=== PATIENT | male | born 1970 | race Caucasian/White ===

== ENCOUNTER 2022-02-17 03:42 | Inpatient (IN) | payer SELFPAY ==
[~2022-02-17] VITALS: Ht 175.3 cm; Wt 63.5 kg
[2022-02-17] MEDS ORDERED: ACETAMINOPHEN 325 MG TAB PO STA (04:13)
[2022-02-17 04:14] LABS: BASOPHILS % 0.2 % (0.0-1.0); EOSINOPHILS # (AUTO) 0.1 (0.0-0.4); EOSINOPHILS % 0.7 % (0.0-6.0); HEMATOCRIT 50.6 % (38.2-49.6); HEMOGLOBIN 16.9 g/dL (14.0-18.0); LYMPHOCYTES # (AUTO) 1.7 (1.0-3.2); LYMPHOCYTES % 18.2 % (18.0-39.1); MEAN CORPUSCULAR HEMOGLOBIN 32.4 pg (28-32); MEAN CORPUSCULAR HGB CONC 33.4 g/dL (31-35); MEAN CORPUSCULAR VOLUME 97.1 fL (81-99); MONOCYTES # (AUTO) 0.6 (0.2-0.8); MONOCYTES % 6.6 % (4.4-11.3); NEUTROPHILS # (AUTO) 6.8 (2.1-6.9); NEUTROPHILS % 73.9 % (38.7-80.0); PLATELET COUNT 378 x10e3/uL (140-360); RED BLOOD COUNT 5.21 x10e6/uL (4.3-5.7); RED CELL DISTRIBUTION WIDTH 11.9 % (11.7-14.4)
[2022-02-17 04:23] LABS: CLARITY,URINE CLEAR (CLEAR); COLOR,URINE YELLOW (YELLOW); KETONES,URINE NEGATIVE (NEGATIVE); LEUKOCYTE ESTERASE ,URINE NEGATIVE (NEGATIVE); NITRITE,URINE NEGATIVE (NEGATIVE); PROTEIN,URINE DIPSTICK NEGATIVE (NEGATIVE)
[2022-02-17 04:24] LABS: AMPHETAMINES SCREEN,URINE NEGATIVE (NEGATIVE); BENZODIAZEPINES SCREEN,URINE NEGATIVE (NEGATIVE); PHENCYCLIDINE SCREEN,URINE NEGATIVE (NEGATIVE); URINE UROBILINOGEN 0.2 mg/dL (0.2 - 1)
[2022-02-17 04:30] LABS: CREATINE KINASE 62 IU/L (30-200)
[2022-02-17] MEDS ORDERED: ACETAMINOPHEN 325 MG TAB ONE (04:30)
[2022-02-17 04:32] LABS: BACTERIA,URINE MODERATE /HPF; EPITHELIAL CELLS,URINE FEW /LPF; MUCUS,URINE MANY (RARE); RBC,URINE 0-5 /HPF (0-5); WBC,URINE (MAN) 0-5 /HPF (0-5)
[2022-02-17] MEDS ORDERED: ONDANSETRON HCL INJ 2MG/ML 2ML 2 MG/ML VIAL IV STA (04:51)
[2022-02-17 04:52] LABS: ALBUMIN/GLOBULIN RATIO 1.4 (0.8-2.0); ANION GAP 16.7 mmol/L (8-16); CALCIUM 8.8 mg/dL (8.4-10.2); CREATININE, SERUM 0.78 mg/dL (0.72-1.25); POTASSIUM 3.7 mmol/L (3.5-5.1)
[2022-02-17] MEDS ORDERED: SODIUM CHLORIDE 0.9% 1000ML 1,000 ML IV SCH (05:00)
[2022-02-17] MEDS ORDERED: ONDANSETRON HCL INJ 2MG/ML 2ML 2 MG/ML VIAL ONE (05:05)
[2022-02-17] MEDS ORDERED: IOPAMIDOL 370 MG/ML 100 ML INFUS..BTL INJ ONE (05:18)
[2022-02-17] MEDS: Morphine 4mg INJECTION 4 MG/ML INJ IV PRN ×2 (05:30→12:00)
[2022-02-17] MEDS ORDERED: DIPHENHYDRAMINE HCL INJ 50 MG/ML VIAL ONE (07:19)
[2022-02-17] MEDS ORDERED: HYDROMORPHONE 1MG/1ML INJ IV ONE (07:45)
[2022-02-17] MEDS ORDERED: MULTIVITAMINS- 12 INJECTION 10 ML, FOLIC ACID MDV 1 MG, THIAMINE HCL INJ 100 MG in SODI... IV SCH (08:00)
[2022-02-17 08:55] VITALS: BP 150/85
[2022-02-17] MEDS ORDERED: LACTATED RINGER'S 1,000 ML ONE (09:28)
[2022-02-17] MEDS ORDERED: OMEPRAZOLE40 MG PO (09:33)
[2022-02-17] MEDS ORDERED: IBUPROFEN200 MG PO (09:33)
[2022-02-17] MEDS: ONDANSETRON HCL INJ 2MG/ML 2ML 2 MG/ML VIAL IV PRN ×3 (11:59→22:57)
[2022-02-17 12:01] VITALS: BP 165/94
[2022-02-17] MEDS ORDERED: HYDROMORPHONE 1MG/1ML INJ IV PRN (13:00)
[2022-02-17] MEDS: MULTIVITAMINS- 12 INJECTION 10 ML, FOLIC ACID MDV 1 MG, THIAMINE HCL INJ 100 MG in SODI... IV SCH (16:17)
[2022-02-17 16:49] VITALS: BP 159/98
[2022-02-17] MEDS ORDERED: LACTATED RINGER'S 1,000 ML INJ SCH (17:00)
[2022-02-17 17:01] VITALS: BP 159/98
[2022-02-17 17:04] VITALS: BP 159/98
[2022-02-17] MEDS ORDERED: BENADRYL25 M1 PO (18:36)
[2022-02-17 20:00] VITALS: BP 152/92
[2022-02-17] MEDS ORDERED: DIPHENHYDRAMINE HCL 25 MG CAP PO PRN (20:15)
[2022-02-17] MEDS: HYDROMORPHONE 1MG/1ML INJ IV PRN (22:56)
[2022-02-17] MEDS: DIPHENHYDRAMINE HCL INJ 50 MG/ML VIAL IV PRN (22:58)
[2022-02-18] VITALS (9 sets, daily range): BP systolic 130–151; BP diastolic 72–90
[2022-02-18] MEDS ORDERED: LACTATED RINGER'S 1,000 ML INJ SCH (01:00)
[2022-02-18] MEDS: ONDANSETRON HCL INJ 2MG/ML 2ML 2 MG/ML VIAL IV PRN (03:07)
[2022-02-18] MEDS: LACTATED RINGER'S 1,000 ML INJ SCH ×3 (04:25→15:30)
[2022-02-18] MEDS: HYDROMORPHONE 1MG/1ML INJ IV PRN ×4 (04:26→22:13)
[2022-02-18 05:01] LABS: BASOPHILS # (AUTO) 0.1 (0.0-0.1); BASOPHILS % 0.3 % (0.0-1.0); EOSINOPHILS % 0.1 % (0.0-6.0); HEMATOCRIT 43.8 % (38.2-49.6); HEMOGLOBIN 15.1 g/dL (14.0-18.0); LYMPHOCYTES # (AUTO) 0.8 (1.0-3.2); MEAN CORPUSCULAR HEMOGLOBIN 32.1 pg (28-32); MEAN CORPUSCULAR HGB CONC 34.5 g/dL (31-35); MEAN CORPUSCULAR VOLUME 93.2 fL (81-99); MONOCYTES # (AUTO) 1.5 (0.2-0.8); MONOCYTES % 7.8 % (4.4-11.3); NEUTROPHILS # (AUTO) 17.1 (2.1-6.9); NEUTROPHILS % 87.1 % (38.7-80.0); PLATELET COUNT 335 x10e3/uL (140-360); RED CELL DISTRIBUTION WIDTH 12.2 % (11.7-14.4)
[2022-02-18 05:41] LABS: ALBUMIN 3.3 g/dL (3.5-5.0); ALBUMIN/GLOBULIN RATIO 1.3 (0.8-2.0); ANION GAP 11.9 mmol/L (8-16); CALCIUM 8.4 mg/dL (8.4-10.2); CREATININE, SERUM 0.78 mg/dL (0.72-1.25); POTASSIUM 3.9 mmol/L (3.5-5.1)
[2022-02-18 05:57] LABS: MAGNESIUM 1.5 MG/DL (1.3-2.1); PHOSPHORUS 1.5 MG/DL (2.3-4.7)
[2022-02-18] MEDS ORDERED: ACETAMINOPHEN 325 MG TAB PO PRN (10:15)
[2022-02-18] MEDS ORDERED: HYDRALAZINE HCL 20 MG/ML VIAL IV PRN (10:15)
[2022-02-18] MEDS ORDERED: POLYETHYLENE GLYCOL 3350 17 GM PACK PO PRN (10:15)
[2022-02-18] MEDS ORDERED: CHLORDIAZEPOXIDE HCL 25 MG CAP PO PRN (10:15)
[2022-02-18] MEDS ORDERED: LORAZEPAM INJ 2 MG/ML VIAL IV PRN (10:15)
[2022-02-18] MEDS ORDERED: MAGNESIUM SULF 1GRAM/DEXTROSE 100 ML IV ONE (10:45)
[2022-02-18] MEDS ORDERED: POTASSIUM PHOSPHATE 15 MM in SODIUM CHLORIDE 0.9% 250ML 250 ML IV ONE (11:30)
[2022-02-18] MEDS ORDERED: MAGNESIUM SULFATE 2GM/50ML 50 ML IV ONE (11:45)
[2022-02-18] MEDS ORDERED: DOCUSATE SODIUM 100 MG CAP PO SCH (17:00)
[2022-02-18] MEDS: FAMOTIDINE 20 MG/2 ML VIAL IV SCH (18:35)
[2022-02-18] MEDS: MULTIVITAMINS- 12 INJECTION 10 ML, FOLIC ACID MDV 1 MG, THIAMINE HCL INJ 100 MG in SODI... IV SCH (20:57)
[2022-02-19] MEDS: DIPHENHYDRAMINE HCL INJ 50 MG/ML VIAL IV PRN ×2 (00:23→05:57)
[2022-02-19 04:00] VITALS: BP 132/77
[2022-02-19] MEDS: HYDROMORPHONE 1MG/1ML INJ IV PRN ×2 (04:21→10:17)
[2022-02-19 04:44] LABS: CLARITY,URINE SL CLOUDY (CLEAR); COLOR,URINE YELLOW (YELLOW); KETONES,URINE NEGATIVE (NEGATIVE); LEUKOCYTE ESTERASE ,URINE TRACE (NEGATIVE); NITRITE,URINE NEGATIVE (NEGATIVE); PROTEIN,URINE DIPSTICK TRACE (NEGATIVE); URINE UROBILINOGEN 1 mg/dL (0.2 - 1)
[2022-02-19 04:52] LABS: BACTERIA,URINE MANY /HPF; EPITHELIAL CELLS,URINE MANY /LPF; RENAL EPITHELIAL CELLS,URINE FEW; TRANSITIONAL EPI CELLS,URINE FEW
[2022-02-19 05:42] LABS: BASOPHILS % 0.2 % (0.0-1.0); EOSINOPHILS # (AUTO) 0.1 (0.0-0.4); EOSINOPHILS % 0.5 % (0.0-6.0); HEMATOCRIT 42.7 % (38.2-49.6); HEMOGLOBIN 14.1 g/dL (14.0-18.0); LYMPHOCYTES # (AUTO) 0.8 (1.0-3.2); LYMPHOCYTES % 4.8 % (18.0-39.1); MEAN CORPUSCULAR HEMOGLOBIN 32.3 pg (28-32); MEAN CORPUSCULAR VOLUME 97.9 fL (81-99); MONOCYTES # (AUTO) 1.3 (0.2-0.8); MONOCYTES % 7.8 % (4.4-11.3); NEUTROPHILS # (AUTO) 14.7 (2.1-6.9); NEUTROPHILS % 86.3 % (38.7-80.0); PLATELET COUNT 337 x10e3/uL (140-360); RED BLOOD COUNT 4.36 x10e6/uL (4.3-5.7); RED CELL DISTRIBUTION WIDTH 12.1 % (11.7-14.4)
[2022-02-19 05:59] LABS: ALBUMIN/GLOBULIN RATIO 1.2 (0.8-2.0); CALCIUM 8.2 mg/dL (8.4-10.2); CHOL/HDL RATIO 3.1 (3.9-4.7); CREATININE, SERUM 0.7 mg/dL (0.72-1.25)
[2022-02-19 06:20] LABS: THYROID STIMULATING HORMONE 1.599 uIU/mL (0.350-4.940)
[2022-02-19] MEDS: LACTATED RINGER'S 1,000 ML INJ SCH ×2 (07:22→07:23)
[2022-02-19 08:04] VITALS: BP 148/85
[2022-02-19 08:19] VITALS: BP 148/85
[2022-02-19] MEDS: FAMOTIDINE 20 MG/2 ML VIAL IV SCH (10:17)
[2022-02-19] MEDS ORDERED: TRAMADOL HCL 50 MG TAB PO PRN (10:45)
[2022-02-19 11:22] VITALS: BP 145/87
== END 2022-02-19 13:33 | disposition home or self-care (01) | DRG 439 ==
LOC: ER 03:45 → ERHOLD 04:55 → MED/SURG 08:03
PROVIDERS: ADMIT Internal Medicine; ATTEND Internal Medicine
DX: K85.20 Alcohol induced acute pancreatitis without necrosis or infection (principal); K56.600 Partial intestinal obstruction, unspecified as to cause; F10.20 Alcohol dependence, uncomplicated; Z20.822 Contact with and (suspected) exposure to COVID-19; F11.10 Opioid abuse, uncomplicated; F17.200 Nicotine dependence, unspecified, uncomplicated; J06.9 Acute upper respiratory infection, unspecified; E83.42 Hypomagnesemia; E83.39 Other disorders of phosphorus metabolism
CPT/HCPCS: 0223U; 36415; 71045; 74177; 80053; 80061; 80307; 81001; 82150; 82550; 82553; 83036; 83690; 83735; 84100; 84443; 84484; 85025; 93005; 94799; 99284; J1170; J1200; J2270; J2405; J3411; J3475; J7030; J7050; J7121; Q9967